=== PATIENT | male | born 1990 | race Two or more races ===

== ENCOUNTER 2023-02-06 19:56 | Emergency (ER) | payer BC ==
[~2023-02-06] VITALS: Ht 167.6 cm; Wt 69.0 kg
[2023-02-06] MEDS ORDERED: dexamethasone sod phosphate 10mg/ml inj PO STA (21:23)
[2023-02-06 21:46] VITALS: BP 139/89; PULSE 73; RESP 16; TEMP 97.6; O2SAT 99
== END 2023-02-06 21:49 | disposition home or self-care (01) ==
LOC: ER 19:57
DX: T78.40XA Allergy, unspecified, initial encounter (principal); X58.XXXA Exposure to other specified factors, initial encounter
CPT/HCPCS: 99283; J1100